=== PATIENT | male | born 1960 | race Caucasian/White ===

== ENCOUNTER 2023-02-17 19:00 | Emergency (ER) | payer BC ==
[~2023-02-17] VITALS: Ht 180.3 cm; Wt 127.0 kg
[~2023-02-17 19:00] MED LIST: EPIPEN 2-P0.3 MG/0.3 IM; LORATADINE10 MG PO; MEDROL4 M1 PO; RANITIDINE HCL150 MG PO
--- OUTSIDE RECORDS SUMMARY | 2023-02-17 19:04 | XMS ---
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 ERadha VISIT COUNT (12 MO.) 1 BRAD Joshua TOTAL 1 NOTE: Visits indicate total known visits. ED/UCC VISIT TRACKING (12 MO.) 02/17/2023 19:01 [facility] [place] TYPE: Emergency COMPLAINT: - CP INPATIENT VISIT TRACKING (12 MO.) No inpatient visits to display in this time frame [email or web address]
[2023-02-17] MEDS ORDERED: KLOR-CON 1010 MEQ PO (23:23)
[2023-02-17] MEDS ORDERED: OMEPRAZOLE20 MG PO (23:23)
[2023-02-17] MEDS ORDERED: SOAANZ20 MG PO (23:24)
[2023-02-17] MEDS ORDERED: ATORVASTATIN CA40 MG PO (23:24)
[2023-02-17] MEDS ORDERED: ISOSORBIDE MONO30 MG PO (23:24)
[2023-02-17] MEDS ORDERED: LISINOPRIL10 MG PO (23:24)
[2023-02-17] MEDS ORDERED: ASPIRIN325 MG PO (23:25)
[2023-02-18 01:26] VITALS: BP 144/91
--- NOTE | 2023-02-22 19:15 | EKG ---
[facility] [address] [facility] [place] [address] Signed Sinus rhythm with occasional premature ventricular complexes Incomplete left bundle branch block ST \T\ T wave abnormality, consider lateral ischemia Abnormal ECG When compared with ECG of 26-DEC-2016 11:14, premature ventricular complexes are now present Confirmed by PADMINI MORAN MD ([id number]) on 02/22/2023 7:15:45 PM Electronically Signed By: PADMINI MORAN 02/22/231914 PATIENT NAME: MICHAEL RUELAS Electrocardiogram DATE OF : 56 PHYSICIAN: PADMINI MORAN REPORT #: [id number] REPORT IS CONFIDENTIAL AND NOT TO BE RELEASED WITHOUT AUTHORIZATION
--- NOTE | 2023-02-22 19:29 | EKG ---
[facility] [address] [facility] [place] [address] Signed Normal sinus rhythm Incomplete left bundle branch block ST \T\ T wave abnormality, consider lateral ischemia Abnormal ECG When compared with ECG of 17-FEB-2023 19:00, (Unconfirmed) premature ventricular complexes are no longer present Confirmed by PADMINI MORAN MD ([id number]) on 02/22/2023 7:29:51 PM Electronically Signed By: PADMINI MORAN 02/22/23 1929 PATIENT NAME: MICHAEL RUELAS NAT Electrocardiogram DATE OF : 56 PHYSICIAN: PADMINI MORAN REPORT #: [id number] REPORT IS CONFIDENTIAL AND NOT TO BE RELEASED WITHOUT AUTHORIZATION
== END 2023-02-18 01:27 | disposition short-term general hospital (02) ==
LOC: ED 19:00
DX: I21.4 Non-ST elevation (NSTEMI) myocardial infarction (principal); I10 Essential (primary) hypertension; Z88.8 Allergy status to other drugs, medicaments and biological substances; Z79.899 Other long term (current) drug therapy; Z79.82 Long term (current) use of aspirin; Z20.822 Contact with and (suspected) exposure to COVID-19
CPT/HCPCS: 36415; 71045; 71275; 74174; 80053; 83735; 83880; 84484; 85025; 85610; 85730; 87502; 93005; 93010; 99285 25; A9270; C9803; J1644; J2270; J2405; Q9967; U0002